=== PATIENT | female | born 1990 | race Caucasian/White ===

== ENCOUNTER 2024-02-09 11:32 | Inpatient (IN) | payer BC, OTHER ==
[~2024-02-09] VITALS: Ht 162.6 cm; Wt 69.1 kg
[2024-02-09 12:38] LABS: Urine Bacteria None Seen /hpf (None Seen)
--- NOTE | 2024-02-09 12:43 | ED.PDOC ---
GI ASSESSMENT HPI Comments 33y F who presents to the ED for chief complaint of abdominal pain. Pt states she has been having R sided abdominal pain for the past 2 days. Pt states the pain is constant, aching in nature, with no associated exacerbating or relieving factors. Pt states she has been having associated nausea and dysuria but otherwise deneis vomiting, diarrhea, fever, cough, chills, chest pain or shortness of breath. Pt states she has noted history of gastritis but states she does not taken any medications for it. Pt denies any changes to diet or any recent sick contacts. Pt in the ED, has noted BP of 146/85 with temp of 99.7F with all other vitals in normal range. Pt otherwise denies any other symptoms at this time. Chief Complaint: Flank Pain Time Seen by MD: 12:42 Reviewed Notes: Medications, Allergies Allergies: Coded Allergies: Amoxicillin (Verified Allergy, Unknown, 02/09/24) Cephalexin (Verified Allergy, Unknown, 02/09/24) Clindamycin (Verified Allergy, Unknown, 02/09/24) Doxycycline (Verified Allergy, Unknown, 02/09/24) Sulfamethoxazole w/Trimethoprim (Verified Allergy, Unknown, 02/09/24) Information Source: Patient Mode of Arrival: Ambulatory Brought in by: self Past Medical History PAST MEDICAL HISTORY: Asthma Past Medical History (Other): gastritis, migraines Surgical History: Denies all surgeries 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 Family History Family History: Unknown Social History Smoker: Non-Smoker Alcohol: Denies ETOH Use Drugs: Denies Drug Use Lives In: Home Constitutional: denies: chills, diaphoresis, fatigue, fever, malaise, sweats, weakness, others EENTM: denies: blurred vision, double vision, ear bleeding, ear discharge, ear drainage, ear pain, ear ringing, eye pain, eye redness, hearing loss, mouth pain, mouth swelling, nasal discharge, nose bleeding, nose congestion, nose pain, photophobia, tearing, throat pain, throat swelling, voice changes, others Respiratory: denies: cough, hemoptysis, orthopnea, SOB at rest, shortness of breath, SOB with excertion, stridor, wheezing, others Cardiovascular: denies: chest pain, dizzy spells, diaphoresis, Dyspnea on exertion, edema, irregular heart beat, left arm pain, lightheadedness, palpitations, PND, syncope, others Gastrointestinal: reports: abdominal pain, nausea; denies: abdomen distended, blood streaked bowels, constipated, diarrhea, dysphagia, difficulty swallowing, hematemesis, melena, poor appetite, poor fluid intake, rectal bleeding, rectal pain, vomiting, others Genitourinary: reports: dysuria; denies: abnormal vagina bleeding, burning, dyspareunia, flank pain, frequency, hematuria, incontinence, pain, , vagina discharge, urgency, others Neurological: denies: dizziness, fainting, headache, left sided numbness, left sided weakness, numbness, paresthesia, pre-existing deficit, right sided numbness, right sided weakness, seizure, speech problems, tingling, tremors, weakness, others Musculoskeletal: denies: back pain, gout, joint pain, joint swelling, muscle pain, muscle stiffness, neck pain, others Integumetry: denies: bruises, change in color, change in hair/nails, dryness, laceration, lesions, lumps, rash, wounds, others Allergic/Immunocompromised: denies: Difficulty Healing, Frequent Infections, Hives, Itching, others Hematologic/Lymphatic: denies: anemia, blood clots, easy bleeding, easy bru ising, swollen glands, others Endocrine: denies: excessive hunger, excessive sweating, excessive thirst, e xcessive urination, flushing, intolerance to cold, intolerance to heat, unexplained weight gain, unexplained weight loss, others Psychiatric: denies: anxiety, bipolar disorder, depression, hopeless, panic disorder, schizophrenia, sleepless, suicidal, others All Other Systems: Reviewed and Negative Physical Exam General Appearance: No Apparent Distress HEENT: Other (Pupils symmetric, no facial asymmetry, moist mucous membranes) Neck: Full Range of Motion, Normal Inspection Respiratory: Lungs Clear, No Accessory Muscle Use, No Respiratory Distress, Normal Breath Sounds Cardiovascular: No Edema, No JVD, Regular Rate/Rhythm Breast Exam: Deferred Gastrointestinal: Epigastric, RUQ, Soft, Tenderness, Other (Right upper flank tenderness to palpation) Genitalia: Deferred Pelvic: Deferred Rectal: Deferred Extremities: Normal inspection, Normal range of motion, Non-tender, No pedal edema Neurologic: Alert (Oriented x4), Other (Ambulatory without difficulty. No gross focal deficit) Cerebellar Function: NOT DONE Reflexes: NOT DONE Skin: Dry, Normal Color, Warm Lymphatic: NOT DONE Was a procedure done? Was a procedure done?: No GI differential Dx Differential Diagnosis: Cholangitis, Cholecystitis, Constipation, Diverticular disease, Esophagitis, Gastritis/PUD, Gastroenteritis, Hernia, Inflammatory BD, Pancreatitis, UTI, Dehydration, Food Poisoning, Bacterial, Viral, Stress Ulcer, Kidney Stone X-Ray, Labs, Meds, VS Vital Signs Date Time Temp Pulse Resp B/P (MAP) Pulse Ox O2 Delivery O2 Flow Rate FiO2 02/09/24 11:54 99.7 69 18 146/80 (102) 99 Lab Test 02/09/24 12:13 02/09/24 11:50 Range/Units White Blood Count 9.9 4.4-10.8 10^3/uL Red Blood Count 4.28 4.0-5.20 10^6/uL Hemoglobin 13.3 12.2-16.2 g/dL Hematocrit 39.1 36.0-46.0 % Mean Corpuscular Volume 91.3 80.0-100.0 fL Mean Corpuscular Hemoglobin 31.0 28.0-32.0 pg Mean Corpuscular Hemoglobin Concent 34.0 32.0-36.0 g/dL Red Cell Distribution Width 12.3 11.8-14.3 % Platelet Count 319 140-450 10^3/uL Mean Platelet Volume 7.0 6.9-10.8 fL Neutrophils (%) (Auto) 73.2 37.0-80.0 % Lymphocytes (%) (Auto) 19.1 10.0-50.0 % Monocytes (%) (Auto) 6.7 0.0-12.0 % Eosinophils (%) (Auto) 0.4 0.0-7.0 % Basophils (%) (Auto) 0.6 0.0-2.0 % Neutrophils # (Auto) 7.3 1.6-8.6 10 ^3/uL Lymphocytes # (Auto) 1.9 0.4-5.4 10 ^3/uL Monocytes # (Auto) 0.7 0-1.3 10 ^3/uL Eosinophils # (Auto) 0 0-0.8 10 ^3/uL Basophils # (Auto) 0.1 0-0.2 10 ^3/uL Nucleated Red Blood Cells 0.0 % Sodium Level 140 136-145 mmol/L Potassium Level 4.2 3.5-5.1 mmol/L Chloride Level 106 98-107 mmol/L Carbon Dioxide Level 27 20-31 mmol/L Anion Gap 7 5-15 Blood Urea Nitrogen 15 9-23 mg/dL Creatinine 1.01 0.550-1.02 mg/dL Glomerular Filtration Rate Calc 74 >90 mL/min BUN/Creatinine Ratio 14.9 10.0-20.0 Serum Glucose 85 74-106 mg/dL Calcium Level 10.0 8.7-10.4 mg/dL Total Bilirubin 0.8 0.2-1.0 mg/dL Aspartate Amino Transferase (AST) 11 L 13-40 U/L Alanine Aminotransferase (ALT) 14 7-40 U/L Alkaline Phosphatase 54 46-116 U/L Total Protein 7.1 5.7-8.2 g/dL Albumin 4.7 3.2-4.8 g/dL Lipase 42 12-53 U/L Beta HCG, Quantitative 1.5 1.5-4.2 mIU/mL Urine Color Colorless Yellow Urine Clarity Clear Clear Urine pH 6.0 5.0-9.0 Urine Specific [place] 1.005 1.001-1.035 Urine Protein Negative Negative Urine Ketones Negative Negative Urine Blood Negative Negative /uL Urine Nitrite Negative Negative Urine Bilirubin Negative Negative Urine Urobilinogen Normal Negative mg/dL Urine Leukocyte Esterase Negative Negative /uL Urine RBC <1 0 - 4 /hpf Urine WBC <1 0 - 5 /hpf Urine Squamous Epithelial Cells Few <5 /hpf Urine Bacteria None seen None Seen /hpf Urine Glucose Normal Normal mg/dL PROCEDURE(s): ABPL - CT AB PEL WO CON-NO ORAL OR IV REASON: RUQ and R flank pain ORDER NUMBER(s): [id number], ACCESSION NUMBER(s): [id number] Exam: CT CT AB PEL WO CON-NO ORAL OR IV History: RUQ and R flank pain Comparison Study: None available at time of dictation. TECHNIQUE: Multidetector CT of the abdomen and pelvis without contrast. Axial, coronal and sagittal multiplanar reformats were obtained from the axial data set by the technologist. Radiation Dose Information: CT Dose: CTDI volume is 8.91 mGy. Dose-length product is 468.72 mGy*cm FINDINGS: The lung bases are clear. Partially visualized heart is unremarkable. Liver, spleen, gallbladder, pancreas and adrenal glands are unremarkable. Small splenule is noted adjacent to the spleen. Mild right pelviectasis with no obstructing calculus noted. Otherwise, kidneys, ureters and urinary bladder are unremarkable. 1.5 cm right ovarian cyst/dominant follicle. Otherwise, uterus and adnexa unremarkable. Mild wall thickening of the stomach and proximal small bowel loops which may be due to inadequate distention. There is fluid within nondistended proximal to mid small bowel loops. Appendix is unremarkable. There is minimal wall thickening of the ascending colon, transverse colon and descending colon. No evidence of intraperitoneal free air or free fluid. No evidence of aortic aneurysm. No significant lymphadenopathy. The soft tissues are unremarkable. Sclerotic focus of the right pubic bone which may represent a bone island with a blastic lesion not excluded. IMPRESSION: Mild right pelviectasis with no obstructing calculus noted. Minimal wall thickening of the ascending colon, transverse colon and descending colon. Correlate for mild colitis. Mild wall thickening of the stomach and proximal small bowel loops which may be due to inadequate distention /mild gastroenteritis. X-Ray, Labs, Meds, VS Comment 33-year-old female with a history of asthma, gastritis and migraines complaining of epigastric and right upper quadrant/right flank pain, nausea and dysuria. Vitals remarkable for temperature 99.7, BP 146/80 Exam remarkable for epigastric, right upper quadrant and right upper flank tenderness to palpation CT abdomen and pelvis IMPRESSION: Mild right pelviectasis with no obstructing calculus noted. Minimal wall thickening of the ascending colon, transverse colon and descending colon. Correlate for mild colitis. Mild wall thickening of the stomach and proximal small bowel loops which may be due to inadequate distention /mild gastroenteritis. CBC, CMP, lipase, hCG and UA unremarkable for any abnormality of acute significance Patient treated with the following in the ED: 1 L 0.9 normal saline IV bolus, Zofran 4 mg IV, Toradol 30 mg IV, Pepcid 20 mg IV, Levaquin 500 mg IV, Flagyl 500 mg IV On re-evaluation patient stated pain had improved. Vitals were stable. Plan is to admit the patient for IV antibiotics. Time of 1ST Reevaluation: 13:15 Reevaluation 1ST: Unchanged Time of 2ND Reevaluation: 15:33 Reevaluation 2ND: Improved Patient Education/Counseling: Diagnosis, Treatment Family Education/Counseling: No Family Present Departure 1 Departure Time of Disposition: 15:33 Impression: Primary Impression: Colitis Disposition: 09 ADMITTED INPATIENT Admit to: Med Surg Condition: Fair Critical Care Note Critical Care Time?: No Stability Stability form required: No Heart Score Heart Score: Heart Score Response (Comments) Value History N/A 0 EKG N/A 0 Age N/A 0 Risk Factors N/A 0 Troponin N/A 0 Total 0 I personally scribed for MAJOR MIRANDA MD ([email or web address]) on 02/09/24 at 12:43. Electronically submitted by Robinson Helm ([facility]). MAJOR MIRANDA MD Feb 09, 2024 12:43
[2024-02-09 12:49] LABS: Basophils # (auto) 0.1 10 ^3/uL (0-0.2); Basophils % (auto) 0.6 % (0.0-2.0); Eosinophils # (auto) 0 10 ^3/uL (0-0.8); Eosinophils % (auto) 0.4 % (0.0-7.0); Hematocrit 39.1 % (36.0-46.0); Hemoglobin 13.3 g/dL (12.2-16.2); Lymphocytes # (auto) 1.9 10 ^3/uL (0.4-5.4); Lymphocytes % (auto) 19.1 % (10.0-50.0); Mean Corpuscular Volume 91.3 fL (80.0-100.0); Monocytes # (auto) 0.7 10 ^3/uL (0-1.3); Monocytes % (auto) 6.7 % (0.0-12.0); Neutrophils # (auto) 7.3 10 ^3/uL (1.6-8.6); Neutrophils % (auto) 73.2 % (37.0-80.0); Platelet Count (auto) 319 10^3/uL (140-450); Red Blood Cells 4.28 10^6/uL (4.0-5.20); Red Cell Distribution Width 12.3 % (11.8-14.3); White Blood Cell 9.9 10^3/uL (4.4-10.8)
[2024-02-09 12:52] LABS: Urine Blood Negative /uL (Negative); Urine Clarity Clear (Clear); Urine Color Colorless (Yellow); Urine Protein, UAD Negative (Negative); Urine Specific Gravity 1.005 (1.001-1.035); Urine Urobilinogen Normal (Negative); Urine WBC <1 /hpf (0 - 5)
[2024-02-09 13:09] LABS: Alanine Aminotransferase 14 U/L (7-40); Albumin 4.7 g/dL (3.2-4.8); Alkaline Phosphatase 54 U/L (46-116); Anion Gap 7 (5-15); Aspartate Aminotransferase 11 U/L (13-40); BUN/Creatinine Ratio 14.9 (10.0-20.0); Bilirubin, Total 0.8 mg/dL (0.2-1.0); Blood Urea Nitrogen 15 mg/dL (9-23); Carbon Dioxide 27 mmol/L (20-31); Chloride 106 mmol/L (98-107); Glucose 85 mg/dL (74-106); Lipase 42 U/L (12-53); Potassium 4.2 mmol/L (3.5-5.1); Sodium 140 mmol/L (136-145); Total Protein 7.1 g/dL (5.7-8.2)
--- NOTE | 2024-02-09 15:06 | DVH ---
Exam: CT CT AB PEL WO CON-NO ORAL OR IV History: RUQ and R flank pain Comparison Study: None available at time of dictation. TECHNIQUE: Multidetector CT of the abdomen and pelvis without contrast. Axial, coronal and sagittal m ultiplanar reformats were obtained from the axial data set by the technologist. Radiation Dose Information: CT Dose: CTDI volume is 8.91 mGy. Dose-length product is 468.72 mGy*cm FINDINGS: The lung bases are clear. Partially visualized heart is unremarkable. Liver, spleen, gallbladder, pancreas and adrenal glands are unremarkable. Small splenule is noted adj acent to the spleen. Mild right pelviectasis with no obstructing calculus noted. Otherwise, kidneys, ureters and urinary b ladder are unremarkable. 1.5 cm right ovarian cyst/dominant follicle. Otherwise, uterus and adnexa u nremarkable. Mild wall thickening of the stomach and proximal small bowel loops which may be due to inadequate dis tention. There is fluid within nondistended proximal to mid small bowel loops. Appendix is unremarkab le. There is minimal wall thickening of the ascending colon, transverse colon and descending colon. No evidence of intraperitoneal free air or free fluid. No evidence of aortic aneurysm. No significant lymphadenopathy. The soft tissues are unremarkable. Sclerotic focus of the right pubic bone which may represent a bone island with a blastic lesion not excluded. IMPRESSION: Mild right pelviectasis with no obstructing calculus noted. Minimal wall thickening of the ascending colon, transverse colon and descending colon. Correlate for mild colitis. Mild wall thickening of the stomach and proximal small bowel loops which may be due to inadequate dis tention /mild gastroenteritis.
[2024-02-09] MEDS ORDERED: PIPERACILLIN-TAZO 4.5GM 100 ML IV ONE (15:30)
[2024-02-09] MEDS ORDERED: HYDROcodone-ACET 5/325MG TAB PO PRN (16:15)
[2024-02-09] MEDS ORDERED: MORPHINE SULFATE INJ 2 MG/ml SYRG IV PRN ×2 (16:15→17:30)
[2024-02-09] MEDS ORDERED: DOCUSATE SOD 100 MG CAP PO PRN (16:15)
[2024-02-09] MEDS ORDERED: ONDANSETRON HCL 4 MG/2 ML VIAL IV PRN (16:15)
--- NOTE | 2024-02-09 17:22 | DVHHP2 ---
History of Present Illness Reason for Visit: Colitis History of Present Illness The patient is a 33-year-old female with past medical history of gastritis, migraines, and asthma who presented to [facility] ED with complaint of abdominal pain. Patient reports symptoms progressively get worse with right- sided abdominal pain for the past 2 days, constant, aching in nature, rating 8/10 numeric scale, associated nausea, dysuria, getting worse today that prompted this visit. Patient was seen and evaluated in the ED, laboratory data shows WBC 9.9, platelets 319, sodium 140, potassium 4.2, BUN 15, creatinine 1.01, glucose 85, lipase 42, hCG 1.5, AST 11, ALT 14. Abdomen/pelvis CT revealing mild right pelviectasis with no obstructing calculus noted; minimal wall thickening of the ascending colon, transverse colon, and descending colon, correlate for mild colitis. Patient was started on IV antibiotic regimen Flagyl, please see medication orders section in the computer. On my assessment, patient denied chest pain, no headache, no dizziness, no diaphoresis, no shortness of breath, no diarrhea, nausea, or vomiting at this moment, no fever, no chills. Patient was admitted for further evaluation and medical management. Past Medical History Asthma, gastritis, migraines Past Surgical History Denies all surgeries Family History Reviewed, noncontributory to the management of this case. Past Social History The patient lives at home, denies smoking, alcohol or illicit drugs abuse. Review of Systems Constitutional: Yes: Weakness; No: Fever, Chills, Sweats, Malaise, Other Eyes: No: Pain, Vision change, Conjunctivae inflammation, Eyelid inflammation, Other, Redness ENT: No: Ear pain, Ear discharge, Nose pain, Nose discharge, Nose congestion, Mouth pain, Mouth swelling, Throat pain, Throat swelling, Other Respiratory: No: Cough, Dry, Shortness of breath, SOB with excertion, Wheezing, Hemoptysis, Pleuritic Pain, Sputum, Wheezing, Other Cardiovascular: No: Chest Pain, Palpitations, Orthopnea, Paroxysmal Noc. Dyspnea, Edema, Lt Headedness, Other Gastrointestinal: Nausea, Vomiting, Abdominal Pain; No: Diarrhea, Constipation, Melena, Hematochezia, Other Genitourinary: Dysuria; No Frequency, No Incontinence, No Hematuria, No Retention, No Other Musculoskeletal: No: other, neck pain, shoulder pain, arm pain, back pain, hand pain, leg pain, foot pain Skin: No: Rash, Lesions, Jaundice, Bruising, Other Neurological: No: Weakness, Numbness, Incoordination, Change in speech, Confusion, Seizures, Other Allergies: Coded Allergies: Amoxicillin (Verified Allergy, Unknown, 02/09/24) Cephalexin (Verified Allergy, Unknown, 02/09/24) Clindamycin (Verified Allergy, Unknown, 02/09/24) Doxycycline (Verified Allergy, Unknown, 02/09/24) Sulfamethoxazole w/Trimethoprim (Verified Allergy, Unknown, 02/09/24) Medications Current Medications Medications Dose Ordered Sig/Breonna Route Start Time Stop Time Status Last Admin Dose Admin Metronidazole 100 ml @ 100 mls/hr Q8HR IV 02/09/24 22:00 UNV Levofloxacin/ Dextrose 100 ml @ 100 mls/hr DAILY IV 02/10/24 10:00 UNV Famotidine 20 mg DAILY IV 02/10/24 10:00 UNV Sodium Chloride 10 ml Q8HR IV 02/09/24 22:00 UNV Acetaminophen/ Hydrocodone Bitart 1 tab Q4HP PRN PO 02/09/24 16:15 UNV Ondansetron HCl 4 mg Q4HP PRN IV 02/09/24 16:15 UNV Docusate Sodium 100 mg BIDPRN PRN PO 02/09/24 16:15 UNV Acetaminophen 650 mg Q6HP PRN PO 02/09/24 16:15 UNV Morphine Sulfate 2 mg Q4HPRN PRN IV 02/09/24 16:15 UNV Exam Vital Signs Vital Signs Date Time Temp Pulse Resp B/P (MAP) Pulse Ox O2 Delivery O2 Flow Rate FiO2 02/09/24 11:54 99.7 69 18 146/80 (102) 99 General Appearance: Alert, Oriented X3, Cooperative, No acute distress HEENT: Atraumatic, PERRLA, EOMI, Mucous membr. moist/pink Respiratory: Clear to auscultation, Normal air movement Cardiovascular: Regular rate, Normal S1, Normal S2, No murmurs Abdominal: Normal bowel sounds, Soft, No hepatospenomegaly, No masses, Other (Reports tenderness) Extremities: No clubbing, No cyanosis, No edema, Normal pulses, No tenderness/swelling Skin: No rashes, No breakdown, No significant lesion Neuro: Normal speech, Normal tone, Sensation intact, Cranial nerves 3-12 NL, Reflexes 2+, Other (Generalized weakness) Psych/Mental Status: Mental status NL, Mood NL Labs/Xrays Labs Test 02/09/24 12:13 02/09/24 11:50 Range/Units White Blood Count 9.9 4.4-10.8 10^3/uL Red Blood Count 4.28 4.0-5.20 10^6/uL Hemoglobin 13.3 12.2-16.2 g/dL Hematocrit 39.1 36.0-46.0 % Mean Corpuscular Volume 91.3 80.0-100.0 fL Mean Corpuscular Hemoglobin 31.0 28.0-32.0 pg Mean Corpuscular Hemoglobin Concent 34.0 32.0-36.0 g/dL Red Cell Distribution Width 12.3 11.8-14.3 % Platelet Count 319 140-450 10^3/uL Mean Platelet Volume 7.0 6.9-10.8 fL Neutrophils (%) (Auto) 73.2 37.0-80.0 % Lymphocytes (%) (Auto) 19.1 10.0-50.0 % Monocytes (%) (Auto) 6.7 0.0-12.0 % Eosinophils (%) (Auto) 0.4 0.0-7.0 % Basophils (%) (Auto) 0.6 0.0-2.0 % Neutrophils # (Auto) 7.3 1.6-8.6 10 ^3/uL Lymphocytes # (Auto) 1.9 0.4-5.4 10 ^3/uL Monocytes # (Auto) 0.7 0-1.3 10 ^3/uL Eosinophils # (Auto) 0 0-0.8 10 ^3/uL Basophils # (Auto) 0.1 0-0.2 10 ^3/uL Nucleated Red Blood Cells 0.0 % Sodium Level 140 136-145 mmol/L Potassium Level 4.2 3.5-5.1 mmol/L Chloride Level 106 98-107 mmol/L Carbon Dioxide Level 27 20-31 mmol/L Anion Gap 7 5-15 Blood Urea Nitrogen 15 9-23 mg/dL Creatinine 1.01 0.550-1.02 mg/dL Glomerular Filtration Rate Calc 74 >90 mL/min BUN/Creatinine Ratio 14.9 10.0-20.0 Serum Glucose 85 74-106 mg/dL Calcium Level 10.0 8.7-10.4 mg/dL Total Bilirubin 0.8 0.2-1.0 mg/dL Aspartate Amino Transferase (AST) 11 L 13-40 U/L Alanine Aminotransferase (ALT) 14 7-40 U/L Alkaline Phosphatase 54 46-116 U/L Total Protein 7.1 5.7-8.2 g/dL Albumin 4.7 3.2-4.8 g/dL Lipase 42 12-53 U/L Beta HCG, Quantitative 1.5 1.5-4.2 mIU/mL Urine Color Colorless Yellow Urine Clarity Clear Clear Urine pH 6.0 5.0-9.0 Urine Specific [place] 1.005 1.001-1.035 Urine Protein Negative Negative Urine Ketones Negative Negative Urine Blood Negative Negative /uL Urine Nitrite Negative Negative Urine Bilirubin Negative Negative Urine Urobilinogen Normal Negative mg/dL Urine Leukocyte Esterase Negative Negative /uL Urine RBC <1 0 - 4 /hpf Urine WBC <1 0 - 5 /hpf Urine Squamous Epithelial Cells Few <5 /hpf Urine Bacteria None seen None Seen /hpf Urine Glucose Normal Normal mg/dL PATIENT: KIMBERLY ARMENDARIZ ACCT: [id number] UNIT: [id number] : 1990 LOC: ER ROOM / BED: / AGE / SEX: 33 / F ADM STATUS: REG ER SERVICE 1153 ORDERING PHYSICIAN: MAJOR MIRANDA MD PROCEDURE(s): ABPL - CT AB PEL WO CON-NO ORAL OR IV REASON: RUQ and R flank pain ORDER NUMBER(s): [id number], ACCESSION NUMBER(s): [id number] Exam: CT CT AB PEL WO CON-NO ORAL OR IV History: RUQ and R flank pain Comparison Study: None available at time of dictation. TECHNIQUE: Multidetector CT of the abdomen and pelvis without contrast. Axial, coronal and sagittal multiplanar reformats were obtained from the axial data set by the technologist. Radiation Dose Information: CT Dose: CTDI volume is 8.91 mGy. Dose-length product is 468.72 mGy*cm FINDINGS: The lung bases are clear. Partially visualized heart is unremarkable. Liver, spleen, gallbladder, pancreas and adrenal glands are unremarkable. Small splenule is noted adjacent to the spleen. Mild right pelviectasis with no obstructing calculus noted. Otherwise, kidneys, ureters and urinary bladder are unremarkable. 1.5 cm right ovarian cyst/dominant follicle. Otherwise, uterus and adnexa unremarkable. Mild wall thickening of the stomach and proximal small bowel loops which may be due to inadequate distention. There is fluid within nondistended proximal to mid small bowel loops. Appendix is unremarkable. There is minimal wall thickening of the ascending colon, transverse colon and descending colon. No evidence of intraperitoneal free air or free fluid. No evidence of aortic aneurysm. No significant lymphadenopathy. The soft tissues are unremarkable. Sclerotic focus of the right pubic bone which may represent a bone island with a blastic lesion not excluded. IMPRESSION: Mild right pelviectasis with no obstructing calculus noted. Minimal wall thickening of the ascending colon, transverse colon and descending colon. Correlate for mild colitis. Mild wall thickening of the stomach and proximal small bowel loops which may be due to inadequate distention/mild gastroenteritis. Assessment/Plan Assessment/Plan Colitis Acute abdominal pain Generalized weakness Plan 1. Admit to med surge unit 2. Breathing treatment 3. Pain control management 4. IV antibiotic management 5. Management of fluids and electrolytes 6. Consultation for hospitalist 7. Diagnostic test abdomen/pelvis CT 8. DVT prophylaxis on SCDs 9. Repeat labs CBC, CMP in a.m. 10. Continue with current medical management 11. Treatment plan discussed with patient and RN. Patient verbalized understanding. Plan discussed with: Patient, Other (RN) My Orders Orders - MYRON TOSCANO DNP Procedure Category Date Status Time Metronidazole PHA 02/09/24 Logged 500mg/100ml (Flagyl 22:00 Levofloxacin 500mg PHA 02/10/24 Logged (Levaquin 500mg/ 100m 10:00 Code Status CODE 02/09/24 Transmitted 16:15 Sodium Chloride Lock PHA 02/09/24 Logged (Saline Lock Ns) 22:00 Oxygen Per Hour RT 02/09/24 Transmitted 16:15 Hydrocodone-Acet PHA 02/09/24 Logged 5/325mg Tab ([place] 16:15 Ondansetron Hcl PHA 02/09/24 Logged (Zofran) 16:15 Docusate Sodium PHA 02/09/24 Logged Capsule (Colace 16:15 Complete Blood Count LAB 02/10/24 Verified 04:00 Comprehensive LAB 02/10/24 Verified Metabolic Panel 04:00 Condition: Serious LOLLY 02/09/24 In Process 16:15 Acetaminophen Tablet PHA 02/09/24 Logged (Tylenol Tablet) 16:15 Clear Liq Diet DIET 02/09/24 Transmitted Dinner Bedrest With Bathroom LOLLY 02/09/24 In Process Privileg 16:15 Morphine Sulfate PHA 02/09/24 Logged Injection 16:15 Sequential LOLLY 02/09/24 In Process Compression Device Famotidine Injection PHA 02/10/24 Verified (Pepcid Injection) 10:00 Allergies LOLLY 02/09/24 Verified 16:15 Problem List: (1) Colitis (2) Acute abdominal pain (3) Generalized weakness Date of Service: Feb 09, 2024 Billing Provider: MYRON TOSCANO DNP Common Visit Codes: 37762-[id number] INP/OBS CARE (MOD) MYRON TOCSANO DNP Feb 09, 2024 17:22
[2024-02-09] MEDS ORDERED: NITROGLYCERIN 0.4 MG SL TAB SL PRN (17:30)
[2024-02-09 17:37] VITALS: PULSE 73; RESP 16; O2SAT 100
[2024-02-09] MEDS: SODIUM CHLORIDE 0.9% 1,000 ML IV ONE (17:52)
[2024-02-09] MEDS: metroNIDAZOLE 500MG/100ML 100 ML IV ONE (17:53)
[2024-02-09] MEDS: ONDANSETRON HCL 4 MG/2 ML VIAL IV ONE (17:53)
[2024-02-09] MEDS: FAMOTIDINE (10MG/ML) 2ML VL IV ONE (17:53)
[2024-02-09] MEDS: KETOROLAC TROMETH 30 MG/ML 1ML VIAL IV ONE (17:55)
[2024-02-09] MEDS: ACETAMINOPHEN 325 MG TAB PO PRN (18:34)
[2024-02-09] MEDS: levoFLOXacin 500MG 100 ML IV ONE (18:35)
[2024-02-09] MEDS: metroNIDAZOLE 500MG/100ML 100 ML IV SCH (22:00)
[2024-02-09] MEDS: SODIUM CHLOR 0.9% PF (SALINE LOCK) 10ML VIAL/SYR IV SCH (22:00)
[2024-02-10 03:46] LABS: Basophils # (auto) 0.1 10 ^3/uL (0-0.2); Basophils % (auto) 0.7 % (0.0-2.0); Eosinophils # (auto) 0.1 10 ^3/uL (0-0.8); Eosinophils % (auto) 0.9 % (0.0-7.0); Hematocrit 35.2 % (36.0-46.0); Hemoglobin 12.2 g/dL (12.2-16.2); Lymphocytes # (auto) 2.6 10 ^3/uL (0.4-5.4); Lymphocytes % (auto) 29.9 % (10.0-50.0); Mean Corpuscular Hemoglobin 31.6 pg (28.0-32.0); Mean Corpuscular Hgb Conc. 34.6 g/dL (32.0-36.0); Mean Corpuscular Volume 91.3 fL (80.0-100.0); Monocytes # (auto) 0.8 10 ^3/uL (0-1.3); Monocytes % (auto) 8.7 % (0.0-12.0); Neutrophils # (auto) 5.2 10 ^3/uL (1.6-8.6); Neutrophils % (auto) 59.8 % (37.0-80.0); Nucleated Red Blood Cells % 0.1 %; Platelet Count (auto) 265 10^3/uL (140-450); Red Blood Cells 3.86 10^6/uL (4.0-5.20); Red Cell Distribution Width 12.3 % (11.8-14.3); White Blood Cell 8.6 10^3/uL (4.4-10.8)
[2024-02-10 04:02] LABS: Alanine Aminotransferase 12 U/L (7-40); Anion Gap 8 (5-15); BUN/Creatinine Ratio 12.2 (10.0-20.0); Blood Urea Nitrogen 11 mg/dL (9-23); Calcium 9.7 mg/dL (8.7-10.4); Carbon Dioxide 25 mmol/L (20-31); Glucose 81 mg/dL (74-106); Potassium 4.1 mmol/L (3.5-5.1); Sodium 141 mmol/L (136-145)
[2024-02-10 04:03] LABS: Albumin 4.3 g/dL (3.2-4.8); Bilirubin, Total 1.2 mg/dL (0.2-1.0); Total Protein 6.3 g/dL (5.7-8.2)
[2024-02-10 04:07] LABS: Alkaline Phosphatase 41 U/L (46-116); Aspartate Aminotransferase 9 U/L (13-40); Chloride 108 mmol/L (98-107)
[2024-02-10 08:51] VITALS: PULSE 60; RESP 16; O2SAT 96
[2024-02-10] MEDS: FAMOTIDINE (10MG/ML) 2ML VL IV SCH (10:08)
[2024-02-10] MEDS: levoFLOXacin 500MG 100 ML IV SCH (10:08)
[2024-02-10] MEDS ORDERED: MAALOX PLUS or MAALOX 30 ML PO PRN (11:15)
[2024-02-10] MEDS ORDERED: ONDANSETRON HCL 4 MG/2 ML VIAL IV PRN (11:15)
[2024-02-10] MEDS: PANTOPRAZOLE 40 MG TAB PO ONE (11:50)
[2024-02-10 12:37] VITALS: BP 102/51; PULSE 66; RESP 20; TEMP 98; O2SAT 100
--- NOTE | 2024-02-10 16:35 | DVHDS2 ---
Discharge Summary Date of Admission Feb 09, 2024 at 17:21 Date of Discharge: Feb 10, 2024 Labs/Diagnostic Data: Laboratory Results Test 02/10/24 03:27 02/09/24 17:29 02/09/24 12:13 02/09/24 11:50 White Blood Count 8.6 10^3/uL (4.4-10.8) Red Blood Count 3.86 10^6/uL (4.0-5.20) Hemoglobin 12.2 g/dL (12.2-16.2) Hematocrit 35.2 % (36.0-46.0) Mean Corpuscular Volume 91.3 fL (80.0-100.0) Mean Corpuscular Hemoglobin 31.6 pg (28.0-32.0) Mean Corpuscular Hemoglobin Concent 34.6 g/dL (32.0-36.0) Red Cell Distribution Width 12.3 % (11.8-14.3) Platelet Count 265 10^3/uL (140-450) Mean Platelet Volume 6.7 fL (6.9-10.8) Neutrophils (%) (Auto) 59.8 % (37.0-80.0) Lymphocytes (%) (Auto) 29.9 % (10.0-50.0) Monocytes (%) (Auto) 8.7 % (0.0-12.0) Eosinophils (%) (Auto) 0.9 % (0.0-7.0) Basophils (%) (Auto) 0.7 % (0.0-2.0) Neutrophils # (Auto) 5.2 10 ^3/uL (1.6-8.6) Lymphocytes # (Auto) 2.6 10 ^3/uL (0.4-5.4) Monocytes # (Auto) 0.8 10 ^3/uL (0-1.3) Eosinophils # (Auto) 0.1 10 ^3/uL (0-0.8) Basophils # (Auto) 0.1 10 ^3/uL (0-0.2) Nucleated Red Blood Cells 0.1 % Sodium Level 141 mmol/L (136-145) Potassium Level 4.1 mmol/L (3.5-5.1) Chloride Level 108 mmol/L (98-107) Carbon Dioxide Level 25 mmol/L (20-31) Anion Gap 8 (5-15) Blood Urea Nitrogen 11 mg/dL (9-23) Creatinine 0.90 mg/dL (0.550-1.02) Glomerular Filtration Rate Calc 86 mL/min (>90) BUN/Creatinine Ratio 12.2 (10.0-20.0) Serum Glucose 81 mg/dL (74-106) Calcium Level 9.7 mg/dL (8.7-10.4) Total Bilirubin 1.2 mg/dL (0.2-1.0) Aspartate Amino Transferase (AST) 9 U/L (13-40) Alanine Aminotransferase (ALT) 12 U/L (7-40) Alkaline Phosphatase 41 U/L (46-116) Total Protein 6.3 g/dL (5.7-8.2) Albumin 4.3 g/dL (3.2-4.8) Lactic Acid Level 0.9 mmol/L (0.4-2.0) Lipase 42 U/L (12-53) Beta HCG, Quantitative 1.5 mIU/mL (1.5-4.2) Urine Color Colorless (Yellow) Urine Clarity Clear (Clear) Urine pH 6.0 (5.0-9.0) Urine Specific [place] 1.005 (1.001-1.035) Urine Protein Negative (Negative) Urine Ketones Negative (Negative) Urine Blood Negative /uL (Negative) Urine Nitrite Negative (Negative) Urine Bilirubin Negative (Negative) Urine Urobilinogen Normal mg/dL (Negative) Urine Leukocyte Esterase Negative /uL (Negative) Urine RBC <1 /hpf (0 - 4) Urine WBC <1 /hpf (0 - 5) Urine Squamous Epithelial Cells Few /hpf (<5) Urine Bacteria None seen /hpf (None Seen) Urine Glucose Normal mg/dL (Normal) Other Laboratory Tests 02/10/24 03:27 Brief Hx & Hospital Course: 3-year-old female with recurrent abdominal discomfort, bloating. Went to primary doctor, have not seen GI before. Symptomatology fits with IBS, however can not rule out infectious colitis. Patient left AMA prior to receiving complete workup Condition at Discharge: Good Final Diagnosis/Problems List gastroenteritis Discharge Disposition: AMA Discharge Instruct/Medications Diet: Regular Activity: No Restrictions, As Tolerated 45 Discharge Statement: "Patient was advised to return to the ER or call 911 if any headaches, dizziness, shortness of breath, chest pain, abdominal pain, bleeding, fevers, or worsening of medical condition. Patient was counseled about treatment plan, medications, possible side effects, patientverbalized understanding. All questions were answered to the best of my ability. This discharge took greater then 30 minutes in planning, reviewing documentation, counseling the patient, and discussing with other team members." ASSESSMENT ASSESSMENT Assessment IBS cannot rule out gastroenteritis Date of Service: Feb 10, 2024 Billing Provider: ELAINE KONG MD Common Visit Codes: 33386-ZAX/OBS DISCH DAY >30min ELAINE KONG MD Feb 10, 2024 16:35
[2024-02-11] MEDS ORDERED: PANTOPRAZOLE 40 MG TAB PO SCH (06:00)
== END 2024-02-10 13:28 | disposition left against medical advice (07) | DRG 392 ==
LOC: ER 11:32 → OVERFLOW 13:28
PROVIDERS: ADMIT Nurse Practitioner Family; ATTEND Student in an Organized Health Care Education/Training Program
DX: K52.9 Noninfective gastroenteritis and colitis, unspecified (principal); J45.909 Unspecified asthma, uncomplicated; Z53.29 Procedure and treatment not carried out because of patient's decision for other reasons; G43.909 Migraine, unspecified, not intractable, without status migrainosus; Z88.3 Allergy status to other anti-infective agents; Z88.1 Allergy status to other antibiotic agents; Z88.0 Allergy status to penicillin; Z79.899 Other long term (current) drug therapy
CPT/HCPCS: 36415; 74176; 80053; 81001; 83605; 83690; 84702; 85025; G0378; J1885; J1956; J2405; J3490